=== PATIENT | female | born 1955 | race Native Hawaiian/Other Pacific Islander ===

== ENCOUNTER 2016-08-09 10:16 | Outpatient (CLI) | payer BC | END 2016-08-09 11:16 | disposition home or self-care (01) | LOC: RAD 10:16 | DX: M79.672 Pain in left foot (principal) ==

== ENCOUNTER 2017-12-19 08:52 | Outpatient (CLI) | payer BC | END 2017-12-19 22:35 | disposition home or self-care (01) | LOC: MAMMO 08:52 | DX: Z12.31 Encounter for screening mammogram for malignant neoplasm of breast (principal) ==

== ENCOUNTER 2020-07-22 12:18 | Emergency (ER) | payer OTHER ==
[~2020-07-22] VITALS: Ht 170.2 cm; Wt 84.8 kg
[2020-07-22 12:28] VITALS: TEMP 97.8
[2020-07-22 13:29] VITALS: BP 167/85
== END 2020-07-22 13:31 | disposition home or self-care (01) ==
LOC: ED 12:18
PROC: 2W39X1Z Immobilization of Left Upper Extremity using Splint (ICD-10-PCS; principal; 2020-07-22)
DX: S42.492A Other displaced fracture of lower end of left humerus, initial encounter for closed fracture (principal); W01.198A Fall on same level from slipping, tripping and stumbling with subsequent striking against other object, initial encounter; Y92.89 Other specified places as the place of occurrence of the external cause
CPT/HCPCS: 96372; 99283; J1885

== ENCOUNTER 2020-11-23 09:41 | Outpatient (CLI) | payer OTHER | END 2020-11-23 19:35 | disposition home or self-care (01) | LOC: MAMMO 09:41 | PROVIDERS: ATTEND Nurse Practitioner | DX: Z12.31 Encounter for screening mammogram for malignant neoplasm of breast (principal) ==

== ENCOUNTER 2020-12-06 08:51 | Outpatient (CLI) | payer OTHER | END 2020-12-06 19:18 | disposition home or self-care (01) | LOC: MAMMO 08:51 | PROVIDERS: ATTEND Nurse Practitioner | DX: R92.8 Other abnormal and inconclusive findings on diagnostic imaging of breast (principal) ==

== ENCOUNTER 2023-05-22 15:33 | Outpatient (CLI) | payer OTHER | END 2023-05-22 19:08 | disposition home or self-care (01) | LOC: LABW 15:33 | PROVIDERS: ATTEND Internal Medicine Gastroenterology | DX: K64.0 First degree hemorrhoids (principal) | CPT/HCPCS: 82272 ==